=== PATIENT | female | born 1960 | race Caucasian/White ===

== ENCOUNTER 2017-10-23 07:29 | Outpatient (CLI) | payer OTHER ==
[2017-10-23 11:10] LABS: BASOPHILS % (AUTO) 0.6 %; EOSINOPHILS # (AUTO) 0.1 10^3/uL (0.0-0.7); EOSINOPHILS % (AUTO) 1.5 %; HGB - HEMOGLOBIN 13.2 g/dL (12.0-16.0); LYMPHOCYTES # (AUTO) 1.5 10^3/uL (1.5-3.5); LYMPHOCYTES % (AUTO) 20.5 %; MEAN CORPUSCULAR HEMOGLOBIN 27.6 pg (27.0-31.0); MEAN CORPUSCULAR HGB CONC 32.7 g/dL (32.0-36.0); MEAN CORPUSCULAR VOLUME 84.4 fL (81.0-99.0); MEAN PLATELET VOLUME 8.6 fL (7.9-10.8); MONOCYTES # (AUTO) 0.4 10^3/uL (0.0-1.0); MONOCYTES % (AUTO) 5.3 %; NEUTROPHILS # (AUTO) 5.3 10^3/uL (1.5-6.6); NEUTROPHILS % (AUTO) 72.1 %; PLT - PLATELET COUNT 143 10^3/uL (130-450); RED BLOOD COUNT 4.77 10^6/uL (4.20-5.40); RED CELL DISTRIBUTION WIDTH 14.8 % (12.0-15.0); WHITE BLOOD COUNT 7.4 x10^3/uL (4.8-10.8)
[2017-10-23 11:23] LABS: ALBUMIN 3.7 g/dL (3.2-5.5); ALBUMIN/GLOBULIN RATIO 1.1 (1.0-2.2); ALKALINE PHOSPHATASE 71 IU/L (42-121); ALT ALANINE AMINOTRANSFERASE 20 IU/L (10-60); AST ASPARTATE AMINOTRANSFERASE 18 IU/L (10-42); BILIRUBIN,TOTAL 0.6 mg/dL (0.2-1.0); BUN - BLOOD UREA NITROGEN 12 mg/dL (6-20); CALCIUM 8.5 mg/dL (8.5-10.3); CARBON DIOXIDE - CO2 30 mmol/L (21-32); CHLORIDE 101 mmol/L (101-111); CHOL/HDL RATIO 3.2 (<4.4); CHOLESTEROL 171 mg/dL; CREATININE 0.4 mg/dL (0.4-1.0); GFR - MDRD 163 (>89); GLUCOSE 104 mg/dL (70-100); HDL CHOLESTEROL 53 mg/dL; LDL CHOLESTEROL,CALCULATED 96 mg/dL; LDL/HDL RATIO 1.8 (<4.4); SODIUM 136 mmol/L (135-145); TOTAL PROTEIN 7.2 g/dL (6.7-8.2); VLDL CHOLESTEROL 22 mg/dL
[2017-10-23 11:31] LABS: HB2 TOTAL 14.1 g/dL; HEMOGLOBIN A1C 0.66 g/dL; HEMOGLOBIN A1C % 6.4 % (4.6-6.2)
[2017-10-23 11:32] LABS: THYROID STIMULATING HORMONE 2.91 uIU/mL (0.34-5.60)
[2017-10-23 11:38] LABS: FERRITIN 45.5 ng/mL (11.0-306.8)
== END 2017-10-23 07:30 | disposition home or self-care (01) ==
LOC: LAB.F 07:29
PROVIDERS: ATTEND Nurse Practitioner Family
DX: Z00.00 Encounter for general adult medical examination without abnormal findings (principal); E55.9 Vitamin D deficiency, unspecified; E78.5 Hyperlipidemia, unspecified; E11.9 Type 2 diabetes mellitus without complications
CPT/HCPCS: 36415; 80053; 80061; 81599; 82306; 82728; 83036; 83525; 83721; 84443; 85025

== ENCOUNTER 2017-12-01 13:26 | Outpatient (CLI) | payer OTHER | END 2017-12-01 13:27 | disposition home or self-care (01) | LOC: SC 13:26 | PROVIDERS: ATTEND Internal Medicine Pulmonary Disease | DX: G47.10 Hypersomnia, unspecified (principal); R06.83 Snoring; E66.9 Obesity, unspecified | CPT/HCPCS: 99203; 99212 ==

== ENCOUNTER 2017-12-22 17:54 | Emergency (ER) | payer OTHER ==
[2017-12-22 18:16] VITALS: BP 195/101
--- NOTE | 2017-12-22 20:00 | ED Physician Documentation ---
PD HPI LOWER EXT INJURY - Stated complaint Stated Complaint: L LEG PX - Chief complaint Chief Complaint: Ext Problem - History obtained from History obtained from: Patient - History of Present Illness PD HPI LOW EXT INJURY LOCATION: Left, Lower leg (she tripped and fell and struck just below knee (lateral anterior) and the bruising there was going down. Now with some swelling and slight tenderness lower part of lower leg and around the ankle. Not hurting in calf area. Talked with PMD office and referred to ED as could not give appt there for few days.) Type of injury: Fall Where injury occurred: Home Timing - details: Abrupt onset (a week ago in upper jin), Gradual onset (of lower leg swelling the past couple days) Worsened by: Moving. No: Palpating Associated symptoms: Swelling. 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 - Past Surgical History Past Surgical History: Yes /CDL INSTRUCTOR: Mastectomy - Present Medications Home Medications: Ambulatory Orders Medication Instructions Recorded Confirmed Natropathic Meds 09/30/15 - Allergies Allergies/Adverse Reactions: Allergies Allergy/AdvReac Type Severity Reaction Status Date / Time No Known Drug Allergies Allergy Verified 09/30/15 18:24 - Social History Does the pt smoke?: No Smoking Status: Never smoker PD ED PE NORMAL - Vitals Vital signs reviewed: Yes - General General: Alert and oriented X 3, No acute distress, Well developed/nourished - Back Back: No spinal TTP - Derm Derm: Normal color, Warm and dry, No rash - Extremities Extremities: Other (right anterior lower leg with bruising and swelling. No effusion. Mild swelling without tenderness anterior lower part of lower leg and around the upper ankle. No discoloration. No red rash nor warmth. Calf area posteriorly without tenderness. GOod color, DP pulse, and cap refill in foot. ) Results - Vitals Vitals: Oxygen O2 Source Room air PD MEDICAL DECISION MAKING - ED course Complexity details: considered differential (contusion below knee anteriorly and has swelling without tenderness below it. No tenderness in calf. I have low suspicion for DVT. discussed with her the possibility of DVT and that it did not seem like it to me, and the poor accuracy of it clinically. Offered duplex U /S. Shared decision to not do imaging unless worsening symptoms. ), d/w patient Departure - Departure Disposition: 01 Home, Self Care Clinical Impression: Contusion of lower leg, left Qualifiers: Encounter type: initial encounter Qualified Code(s): S80.12XA - Contusion of left lower leg, initial encounter Condition: Stable Record reviewed to determine appropriate education?: Yes Instructions: ED Contusion Lower Ext Follow-Up: Chito Durand ARNP [Primary Care Provider] - Comments: This looks like a reasonable consequence of the bruising in the area below the knee and subsequent gravity drainage of the hematoma down to the anterior jin and foot. You may actually get bruising down by the ankle and foot as the blood comes out that way. I think this is low clinical suspicion for DVT right now. Return if increasing pain swelling or tenderness in the calf back part or up into the thigh. Otherwise activity is desired and elevate your leg often for the swelling. Discharge Date/Time: 12/22/17 20:41
== END 2017-12-22 20:41 | disposition home or self-care (01) ==
LOC: ED 17:54
DX: S80.12XA Contusion of left lower leg, initial encounter (principal); W01.198A Fall on same level from slipping, tripping and stumbling with subsequent striking against other object, initial encounter; J45.909 Unspecified asthma, uncomplicated; Z85.3 Personal history of malignant neoplasm of breast
CPT/HCPCS: 99282; 99283

== ENCOUNTER 2018-01-12 10:58 | Outpatient (CLI) | payer OTHER ==
[2018-01-12 17:55] LABS: BASOPHILS # (AUTO) 0.1 10^3/uL (0.0-0.1); BASOPHILS % (AUTO) 0.8 %; EOSINOPHILS # (AUTO) 0.1 10^3/uL (0.0-0.7); EOSINOPHILS % (AUTO) 1.1 %; HGB - HEMOGLOBIN 13.5 g/dL (12.0-16.0); LYMPHOCYTES # (AUTO) 1.7 10^3/uL (1.5-3.5); LYMPHOCYTES % (AUTO) 18.8 %; MEAN CORPUSCULAR HEMOGLOBIN 27.2 pg (27.0-31.0); MEAN CORPUSCULAR HGB CONC 31.4 g/dL (32.0-36.0); MEAN CORPUSCULAR VOLUME 86.4 fL (81.0-99.0); MEAN PLATELET VOLUME 8.3 fL (7.9-10.8); MONOCYTES # (AUTO) 0.5 10^3/uL (0.0-1.0); MONOCYTES % (AUTO) 5.2 %; NEUTROPHILS # (AUTO) 6.7 10^3/uL (1.5-6.6); NEUTROPHILS % (AUTO) 74.1 %; PLT - PLATELET COUNT 193 10^3/uL (130-450); RED BLOOD COUNT 4.97 10^6/uL (4.20-5.40); RED CELL DISTRIBUTION WIDTH 14.5 % (12.0-15.0)
[2018-01-12 18:21] LABS: ALBUMIN 3.5 g/dL (3.2-5.5); ALBUMIN/GLOBULIN RATIO 0.8 (1.0-2.2); BILIRUBIN,TOTAL 0.8 mg/dL (0.2-1.0); CREATININE 0.6 mg/dL (0.4-1.0); TOTAL PROTEIN 7.8 g/dL (6.7-8.2)
[2018-01-12 18:53] LABS: HB2 TOTAL 14.6 g/dL; HEMOGLOBIN A1C 0.61 g/dL
== END 2018-01-12 10:59 | disposition home or self-care (01) ==
LOC: LAB.F 10:58
PROVIDERS: ATTEND Obstetrics & Gynecology
DX: E66.01 Morbid (severe) obesity due to excess calories (principal); Z68.44 Body mass index [BMI] 60.0-69.9, adult; N85.02 Endometrial intraepithelial neoplasia [EIN]
CPT/HCPCS: 36415; 80053; 83036; 85025

== ENCOUNTER 2018-01-12 11:55 | Outpatient (CLI) | payer OTHER ==
--- NOTE | 2018-01-13 15:19 | XRAY Report ---
Procedure Date: 01/12/2018 Accession Number: [id number] / [id number] Procedure: XR - Chest 2 View X-Ray CPT Code: 64289 FULL RESULT: EXAM: CHEST RADIOGRAPHY EXAM DATE: 01/12/2018 12:29 PM. CLINICAL HISTORY: PRE OP. COMPARISON: 09/30/2015. TECHNIQUE: 2 views. FINDINGS: Lungs/Pleura: No focal opacities evident. No pleural effusion. No pneumothorax. Normal volumes. Mediastinum: Heart and mediastinal contours are normal. Other: None. IMPRESSION: No acute cardiopulmonary abnormality. RADIA
== END 2018-01-12 11:56 | disposition home or self-care (01) ==
LOC: DI 11:55
PROVIDERS: ATTEND Nurse Practitioner Family
DX: Z01.818 Encounter for other preprocedural examination (principal); E66.01 Morbid (severe) obesity due to excess calories; Z68.44 Body mass index [BMI] 60.0-69.9, adult; N85.02 Endometrial intraepithelial neoplasia [EIN]
CPT/HCPCS: 36415; 71046; 80053; 83036; 85025; 93005

== ENCOUNTER 2018-01-12 11:58 | Outpatient (CLI) | payer OTHER | END 2018-01-12 11:59 | disposition home or self-care (01) | LOC: RT 11:58 | PROVIDERS: ATTEND Nurse Practitioner Family | DX: Z01.818 Encounter for other preprocedural examination (principal) | CPT/HCPCS: 93005 ==

== ENCOUNTER 2018-01-22 20:30 | Outpatient (CLI) | payer OTHER | END 2018-01-22 20:31 | disposition home or self-care (01) | LOC: SC 20:30 | PROVIDERS: ATTEND Internal Medicine Pulmonary Disease | DX: G47.33 Obstructive sleep apnea (adult) (pediatric) (principal); G47.61 Periodic limb movement disorder | CPT/HCPCS: 95810 ==

== ENCOUNTER 2018-01-26 13:40 | Outpatient (CLI) | payer OTHER | END 2018-01-26 13:41 | disposition home or self-care (01) | LOC: SC 13:40 | PROVIDERS: ATTEND Nurse Practitioner Family | DX: G47.33 Obstructive sleep apnea (adult) (pediatric) (principal); G47.61 Periodic limb movement disorder | CPT/HCPCS: 99212; 99214 ==

== ENCOUNTER 2018-02-04 13:48 | Outpatient (CLI) | payer OTHER | END 2018-02-04 13:49 | disposition home or self-care (01) | LOC: DI 13:48 | PROVIDERS: ATTEND Internal Medicine Cardiovascular Disease | DX: Z01.810 Encounter for preprocedural cardiovascular examination (principal); I10 Essential (primary) hypertension; I51.7 Cardiomegaly | CPT/HCPCS: 93306 ==

== ENCOUNTER 2018-03-10 10:00 | Outpatient (CLI) | payer OTHER | END 2018-03-10 10:01 | disposition home or self-care (01) | LOC: SC 10:00 | PROVIDERS: ATTEND Nurse Practitioner Family | DX: G47.33 Obstructive sleep apnea (adult) (pediatric) (principal) | CPT/HCPCS: 99212; 99214 ==

== ENCOUNTER 2018-05-27 10:20 | Outpatient (CLI) | payer OTHER | END 2018-05-27 10:21 | disposition home or self-care (01) | LOC: SC 10:20 | PROVIDERS: ATTEND Nurse Practitioner Family | DX: Z53.9 Procedure and treatment not carried out, unspecified reason (principal) ==

== ENCOUNTER 2018-06-24 13:26 | Outpatient (CLI) | payer OTHER ==
[2018-06-24 18:11] LABS: ALBUMIN 3.7 g/dL (3.2-5.5); ALBUMIN/GLOBULIN RATIO 1.1 (1.0-2.2); BILIRUBIN,TOTAL 0.4 mg/dL (0.2-1.0); CALCIUM 8.6 mg/dL (8.5-10.3); CREATININE 0.6 mg/dL (0.4-1.0); TOTAL PROTEIN 7.1 g/dL (6.7-8.2)
== END 2018-06-24 13:27 | disposition home or self-care (01) ==
LOC: LAB.F 13:26
PROVIDERS: ATTEND Nurse Practitioner Family
DX: Z79.899 Other long term (current) drug therapy (principal); E55.9 Vitamin D deficiency, unspecified
CPT/HCPCS: 36415; 80053; 82306

== ENCOUNTER 2018-08-03 14:20 | Outpatient (CLI) | payer OTHER ==
[2018-08-03 19:01] LABS: ALBUMIN 3.6 g/dL (3.2-5.5); ALBUMIN/GLOBULIN RATIO 0.9 (1.0-2.2); BILIRUBIN,TOTAL 0.4 mg/dL (0.2-1.0); CALCIUM 8.8 mg/dL (8.5-10.3); CREATININE 0.5 mg/dL (0.4-1.0); TOTAL PROTEIN 7.7 g/dL (6.7-8.2)
== END 2018-08-03 14:21 | disposition home or self-care (01) ==
LOC: LAB.F 14:20
PROVIDERS: ATTEND Nurse Practitioner Family
DX: E55.9 Vitamin D deficiency, unspecified (principal); Z79.899 Other long term (current) drug therapy
CPT/HCPCS: 36415; 80053; 82306

== ENCOUNTER 2018-09-18 14:18 | Outpatient (CLI) | payer OTHER | END 2018-09-18 14:19 | disposition home or self-care (01) | LOC: LAB.F 14:18 | PROVIDERS: ATTEND Nurse Practitioner Family | DX: Z79.899 Other long term (current) drug therapy (principal) | CPT/HCPCS: 36415; 80053 ==

== ENCOUNTER 2018-09-24 15:06 | Outpatient (CLI) | payer OTHER ==
[2018-09-24 17:40] LABS: ALBUMIN 3.6 g/dL (3.2-5.5); ALBUMIN/GLOBULIN RATIO 0.9 (1.0-2.2); BILIRUBIN,TOTAL 0.7 mg/dL (0.2-1.0); CALCIUM 9.5 mg/dL (8.5-10.3); CREATININE 0.6 mg/dL (0.4-1.0); TOTAL PROTEIN 7.7 g/dL (6.7-8.2)
== END 2018-09-24 15:07 | disposition home or self-care (01) ==
LOC: LAB.F 15:06
PROVIDERS: ATTEND Nurse Practitioner Family
DX: Z79.899 Other long term (current) drug therapy (principal)
CPT/HCPCS: 36415; 80053

== ENCOUNTER 2018-10-28 15:16 | Emergency (ER) | payer OTHER ==
[2018-10-28 15:21] VITALS: BP 174/79
[2018-10-28] MEDS ORDERED: cefTRIAXone 1 GM VIAL IM STA (15:41)
[2018-10-28] MEDS ORDERED: LIDOCAINE 1% 2 ML VIAL MC ONE (15:41)
--- NOTE | 2018-10-28 15:53 | ED Physician Documentation ---
History of Present Illness - Stated complaint Stated Complaint: LT LEG PX - Chief complaint Chief Complaint: Ext Problem - History obtained from History obtained from: Patient - History of Present Illness Timing: Last night - Additonal information Additional information: 66-year-old female with a prior history of cellulitis has developed redness swelling and tenderness to her anterior calf on the left side that she noticed this morning. She did notice some shaking chills last night which she thought was related to eating some muscles last night. She is afebrile this morning has some mild pain associated with the redness and has come to the emergency department for evaluation. Review of Systems Constitutional: reports: Chills. denies: Fever Eyes: denies: Decreased vision Ears: denies: Ear pain Nose: denies: Congestion Throat: denies: Sore throat Cardiac: denies: Chest pain / pressure, Palpitations Respiratory: denies: Dyspnea, Cough GI: reports: Nausea. denies: Abdominal Pain, Vomiting, Constipation, Diarrhea : denies: Dysuria, Frequency Skin: denies: Rash Musculoskeletal: reports: Extremity pain, Extremity swelling. 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: Mastectomy - Present Medications Home Medications: Ambulatory Orders Medication Instructions Recorded Confirmed Natropathic Meds 09/30/15 Amox/Clav 875/125 [Augmentin] 1 each PO Q12H #14 tablet 10/28/18 Telmisartan 80 mg PO 10/28/18 hydroCHLOROthiazide 25 mg PO 10/28/18 10/28/18 [Hydrochlorothiazide] - Allergies Allergies/Adverse Reactions: Allergies Allergy/AdvReac Type Severity Reaction Status Date / Time No Known Drug Allergies Allergy Verified 10/28/18 15:21 - Social History Does the pt smoke?: No Smoking Status: Never smoker PD ED PE NORMAL - Vitals Vital signs reviewed: Yes (hypertensive ) - General General: Alert and oriented X 3, No acute distress, Well developed/nourished - HEENT HEENT: Atraumatic, PERRL, EOMI - Respiratory Respiratory: No respiratory distress - Derm Derm: Normal color, Warm and dry, No rash - Extremities Extremities: No deformity, No edema, Other (There is postinflammatory hyperpigmentation to the calves bilaterally and to the left calf there is erythema that extends in a triangular shape up to the knee from the ankle. There is mild swelling associated with this and some tenderness. 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, No motor deficit, No sensory deficit, Normal speech Eye Opening: Spontaneous Motor: Obeys Commands Verbal: Oriented GCS Score: 15 - Psych Psych: Normal mood, Normal affect Results - Vitals Vitals: Vital Signs - 24 hr 10/28/18 15:19 Temperature 37.4 C Heart Rate 96 Respiratory 22 Rate Blood Pressure 174/79 H O2 Saturation 96 Oxygen O2 Source Room air PD MEDICAL DECISION MAKING - ED course Complexity details: considered differential, d/w patient ED course: 58-year-old female with cellulitis to left anterior calf has the outlines of the cellulitis marked with a surgical marker and she is instructed to return to the emergency department should this infection go past these borders. She is administered Rocephin 1 [address] will [address] her on some Augmentin.I have discussed with the patient reasons to return to the hospital including fever and shaking chills as well as extension of the erythema past the borders. Departure - Departure Disposition: 01 Home, Self Care Clinical Impression: Cellulitis Qualifiers: Site of cellulitis: extremity Site of cellulitis of extremity: lower extremity Laterality: left Qualified Code(s): L03.116 - Cellulitis of left lower limb Condition: Stable Instructions: ED Infec Skin Cellulitis Follow-Up: Chito Durand ARNP [Primary Care Provider] - Prescriptions: Amox/Clav 875/125 [Augmentin] 1 each PO Q12H #14 tablet
== END 2018-10-28 16:01 | disposition home or self-care (01) ==
LOC: ED 15:16
DX: L03.116 Cellulitis of left lower limb (principal); Z85.3 Personal history of malignant neoplasm of breast; Z90.10 Acquired absence of unspecified breast and nipple
CPT/HCPCS: 96372; 99283

== ENCOUNTER 2018-10-30 10:04 | Emergency (ER) | payer OTHER ==
--- NOTE | 2018-10-30 11:10 | ED Physician Documentation ---
PD HPI SKIN - Stated complaint Stated Complaint: LOW LEFT LEG PAIN - Chief complaint Chief Complaint: Wound - History obtained from History obtained from: Patient - History of Present Illness Timing - onset: How many days ago (few) Timing - duration: Days (few) Timing - details: Gradual onset, Waxing and waning (She had redness and swelling left lower leg and seen in ER with IM med Rocephin and then PO Meds. She says she feels better but has some decrease of redness upper aspect of it but spread to the back on lower part of lower leg. No drainage.) Location: LLE (anterior lower lower leg) Quality / character: Burning, Discolored (red), Swelling. No: Vesicular, Draining Associated symptoms: No: Fever, Myalgias, N/V/D Contributing factors: No: Recent illness Similar symptoms before: Has not had sx before Recently seen: Emergency Dept (2 days ago) Review of Systems Constitutional: denies: Fever, Chills, Myalgias Nose: denies: Rhinorrhea / runny nose, Congestion Throat: denies: Sore throat Respiratory: denies: Cough GI: denies: Nausea, Vomiting Skin: reports: Rash PD PAST MEDICAL HISTORY - Past Medical History Cardiovascular: Hypertension Respiratory: Asthma CORRECTIONAL GUARD: Breast cancer - Past Surgical History Past Surgical History: Yes /CORRECTIONAL GUARD: Hysterectomy, Mastectomy - Present Medications Home Medications: Ambulatory Orders Medication Instructions Recorded Confirmed Amox/Clav 875/125 [Augmentin] 1 each PO Q12H #14 tablet 10/28/18 Telmisartan 80 mg PO 10/28/18 hydroCHLOROthiazide 25 mg PO 10/28/18 10/28/18 [Hydrochlorothiazide] Saccharomyces Boulardii [Florastor] 250 mg PO BID #20 capsule 10/30/18 Sulfamethox/Trimeth 800/160 1 each PO BID #14 tablet 10/30/18 [Bactrim Ds 800/160] - Allergies Allergies/Adverse Reactions: Allergies Allergy/AdvReac Type Severity Reaction Status Date / Time oxycodone Allergy Emesis Verified 10/30/18 10:18 - Social History Does the pt smoke?: No Smoking Status: Never smoker Does the pt drink ETOH?: Yes Does the pt have substance abuse?: Yes Substance Use and Type: Marijuana - Immunizations Immunizations are current?: No Immunizations: TDAP >10years/unknown PD ED PE NORMAL - Vitals Vital signs reviewed: Yes - General General: Alert and oriented X 3, No acute distress, Well developed/nourished - Back Back: No CVA TTP - Derm Derm: Normal color, Warm and dry, Other (left lower leg anteriorly with redness and swelling, some tenderness. It is receded from ink drawn margin on superior aspect of the area. It is beyond the drawn line medial/lower aspect. ) - Extremities Extremities: No calf tenderness / cord - Neuro Neuro: Alert and oriented X 3, No motor deficit, No sensory deficit, Normal speech Results - Vitals Vitals: Vital Signs - 24 hr 10/30/18 10/30/18 10:12 13:01 Temperature 36.7 C 98.6 C H Heart Rate 86 80 Respiratory 18 16 Rate Blood Pressure 137/112 H 144/83 H O2 Saturation 99 Oxygen O2 Source Room air PD MEDICAL DECISION MAKING - ED course Complexity details: considered differential, d/w patient Departure - Departure Disposition: Home, Self Care Clinical Impression: Cellulitis of left lower leg Condition: Stable Record reviewed to determine appropriate education?: Yes Instructions: ED Infec Skin Cellulitis Follow-Up: Chito Durand ARNP [Primary Care Provider] - Prescriptions: Saccharomyces Boulardii [Florastor] 250 mg PO BID #20 capsule Sulfamethox/Trimeth 800/160 [Bactrim Ds 800/160] 1 each PO BID #14 tablet Comments: Elevate and rest the leg often but it is okay to be up and around periodically. You can use an Ra wrap if needed for swelling. Provide some warmth or heat to the area periodically to increase blood flow and help fight off the infection. Continue your current Augmentin and add Bactrim antibiotic to increase coverage for Staphylococcus as well. Add a probiotic to mitigate the intestinal side effects. Recheck if still not improving well over the next 2-3 days and return sooner if notably worsening in size or you have general symptoms of fever chills nausea etc. Discharge Date/Time: 10/30/18 13:12
[2018-10-30] MEDS ORDERED: LIDOCAINE 1% 2 ML VIAL MC ONE (11:58)
[2018-10-30] MEDS ORDERED: SULFAMETH/TRIMETH DS 800/160 MG TABLET PO STA (11:58)
[2018-10-30] MEDS ORDERED: cefTRIAXone 1 GM VIAL IM STA (11:58)
[2018-10-30 13:03] VITALS: BP 144/83
== END 2018-10-30 13:12 | disposition home or self-care (01) ==
LOC: ED 10:04
DX: L03.116 Cellulitis of left lower limb (principal); I10 Essential (primary) hypertension
CPT/HCPCS: 96372; 99283; A9270

== ENCOUNTER 2019-01-25 09:07 | Outpatient (CLI) | payer OTHER ==
--- NOTE | 2019-01-26 10:19 | XRAY Report ---
Reason: INCREASING CHRONIC PAIN CONCERN FOR DEGENERATIVE Procedure Date: 01/25/2019 Accession Number: [id number] / [id number] Procedure: XRS - Ankle 3 View LT CPT Code: FULL RESULT: EXAM: LEFT ANKLE RADIOGRAPHY EXAM DATE: 01/25/2019 09:25 AM. CLINICAL HISTORY: INCREASING CHRONIC PAIN CONCERN FOR DEGENERATIVE. COMPARISON: None. TECHNIQUE: 3 views. FINDINGS: Bones: Plantar heel spur. No fractures or bone lesions. Joints: Navicular cuneiform osteophyte. Cuneiform metatarsal osteophyte. No effusion. No subluxations. The ankle mortise is normally aligned. Soft Tissues: Normal. No soft tissue swelling. IMPRESSION: 1. Heel spur. 2. Degenerative changes midfoot RADIA
--- NOTE | 2019-01-26 10:22 | XRAY Report ---
Reason: INCREASING CHRONIC PAIN CONCERN FOR DEGENERATIVE Procedure Date: 01/25/2019 Accession Number: [id number] / [id number] Procedure: XRS - Foot 3 View LT CPT Code: FULL RESULT: EXAM: LEFT FOOT RADIOGRAPHY EXAM DATE: 01/25/2019 09:25 AM. CLINICAL HISTORY: INCREASING CHRONIC PAIN CONCERN FOR DEGENERATIVE. COMPARISON: ANKLE 3 VIEW LT 01/25/2019 9:27 AM. TECHNIQUE: 3 views. FINDINGS: Bones: Mild metatarsus adductus, hallux valgus. Bony overgrowth growth first metatarsal head. No fractures or bone lesions. Joints: Navicular cuneiform osteophyte. Cuneiform metatarsal osteophyte. 1 of the digits on the lateral view appears to be in hammertoe configuration Soft Tissues: Soft tissue swelling. IMPRESSION: 1. DJD. 2. Bunion formation RADIA
== END 2019-01-25 09:08 | disposition home or self-care (01) ==
LOC: DI.S 09:07
PROVIDERS: ATTEND Nurse Practitioner Family
DX: M77.32 Calcaneal spur, left foot (principal); M19.072 Primary osteoarthritis, left ankle and foot; M21.612 Bunion of left foot

== ENCOUNTER 2019-09-20 08:39 | Outpatient (CLI) | payer OTHER ==
[2019-09-20 17:56] LABS: BASOPHILS % (AUTO) 0.6 %; EOSINOPHILS # (AUTO) 0.1 10^3/uL (0.0-0.7); EOSINOPHILS % (AUTO) 1.1 %; HGB - HEMOGLOBIN 13.4 g/dL (12.0-16.0); LYMPHOCYTES # (AUTO) 1.5 10^3/uL (1.5-3.5); LYMPHOCYTES % (AUTO) 20.9 %; MEAN CORPUSCULAR HEMOGLOBIN 26.4 pg (27.0-31.0); MEAN CORPUSCULAR HGB CONC 29.7 g/dL (32.0-36.0); MEAN CORPUSCULAR VOLUME 88.8 fL (81.0-99.0); MEAN PLATELET VOLUME 10.1 fL (7.9-10.8); MONOCYTES # (AUTO) 0.4 10^3/uL (0.0-1.0); MONOCYTES % (AUTO) 6.2 %; NEUTROPHILS # (AUTO) 5.1 10^3/uL (1.5-6.6); NEUTROPHILS % (AUTO) 71.1 %; PLT - PLATELET COUNT 196 10^3/uL (130-450); RED BLOOD COUNT 5.08 10^6/uL (4.20-5.40); RED CELL DISTRIBUTION WIDTH 13.6 % (12.0-15.0); WHITE BLOOD COUNT 7.1 x10^3/uL (4.8-10.8)
[2019-09-20 18:17] LABS: HB2 TOTAL 13.9 g/dL; HEMOGLOBIN A1C 0.75 g/dL; HEMOGLOBIN A1C % 7.1 % (4.6-6.2)
[2019-09-20 18:32] LABS: ALBUMIN 3.5 g/dL (3.2-5.5); ALBUMIN/GLOBULIN RATIO 0.9 (1.0-2.2); ALKALINE PHOSPHATASE 63 IU/L (42-121); ALT ALANINE AMINOTRANSFERASE 25 IU/L (10-60); AST ASPARTATE AMINOTRANSFERASE 22 IU/L (10-42); BILIRUBIN,TOTAL 0.5 mg/dL (0.2-1.0); BUN - BLOOD UREA NITROGEN 17 mg/dL (6-20); CALCIUM 8.7 mg/dL (8.5-10.3); CARBON DIOXIDE - CO2 28 mmol/L (21-32); CHLORIDE 102 mmol/L (101-111); CHOL/HDL RATIO 3.7 (<4.4); CHOLESTEROL 187 mg/dL; CREATININE 0.6 mg/dL (0.4-1.0); CRP - C-REACTIVE PROTEIN 1.9 mg/dL (0-1.0); GLUCOSE 121 mg/dL (70-100); HDL CHOLESTEROL 50 mg/dL; LDL CHOLESTEROL,CALCULATED 119 mg/dL; LDL/HDL RATIO 2.4 (<4.4); SODIUM 137 mmol/L (135-145); T4 (THYROXINE) 8.81 ug/dL (6.09-12.23); TOTAL PROTEIN 7.4 g/dL (6.7-8.2); VLDL CHOLESTEROL 18 mg/dL
[2019-09-20 18:34] LABS: THYROID STIMULATING HORMONE 2.67 uIU/mL (0.34-5.60)
[2019-09-20 18:36] LABS: FREE T4 (FREE THYROXINE) 1.07 ng/dL (0.58-1.64)
[2019-09-20 18:41] LABS: FERRITIN 55.5 ng/mL (11.0-306.8)
== END 2019-09-20 08:40 | disposition home or self-care (01) ==
LOC: LAB.S 08:39
PROVIDERS: ATTEND Nurse Practitioner Family
DX: Z01.00 Encounter for examination of eyes and vision without abnormal findings (principal); R53.83 Other fatigue; E55.9 Vitamin D deficiency, unspecified; E78.5 Hyperlipidemia, unspecified; R73.9 Hyperglycemia, unspecified; M66.0 Rupture of popliteal cyst
CPT/HCPCS: 36415; 80053; 80061; 81599; 82306; 82728; 83036; 83525; 83721; 84436; 84439; 84443; 84481; 85025; 85651; 86140

== ENCOUNTER 2020-01-19 10:01 | Outpatient (CLI) | payer OTHER ==
[2020-01-19 15:46] LABS: HB2 TOTAL 13.5 g/dL; HEMOGLOBIN A1C 0.74 g/dL; HEMOGLOBIN A1C % 7.2 % (4.6-6.2)
[2020-01-19 16:09] LABS: T3 UPTAKE 38.7 % (32.0-48.4)
[2020-01-19 16:10] LABS: T4 (THYROXINE) 10.27 ug/dL (6.09-12.23)
[2020-01-19 16:13] LABS: FREE T3 3.24 pg/mL (2.5-3.9); THYROID STIMULATING HORMONE 2.51 uIU/mL (0.34-5.60)
[2020-01-19 16:14] LABS: FREE T4 (FREE THYROXINE) 0.97 ng/dL (0.58-1.64)
== END 2020-01-19 10:02 | disposition home or self-care (01) ==
LOC: LAB.S 10:01
PROVIDERS: ATTEND Nurse Practitioner Family
DX: R53.83 Other fatigue (principal); E55.9 Vitamin D deficiency, unspecified; R73.9 Hyperglycemia, unspecified
CPT/HCPCS: 36415; 82306; 83036; 84436; 84439; 84443; 84479; 84481; 84482; 86376; 86800

== ENCOUNTER 2020-04-20 12:02 | Outpatient (CLI) | payer OTHER ==
[2020-04-20 15:35] LABS: BASOPHILS % (AUTO) 0.5 %; EOSINOPHILS # (AUTO) 0.1 10^3/uL (0.0-0.7); EOSINOPHILS % (AUTO) 1.2 %; HGB - HEMOGLOBIN 13.6 g/dL (12.0-16.0); LYMPHOCYTES # (AUTO) 2.2 10^3/uL (1.5-3.5); LYMPHOCYTES % (AUTO) 24.3 %; MEAN CORPUSCULAR HGB CONC 31.5 g/dL (32.0-36.0); MEAN CORPUSCULAR VOLUME 88.9 fL (81.0-99.0); MEAN PLATELET VOLUME 10.1 fL (7.9-10.8); MONOCYTES # (AUTO) 0.5 10^3/uL (0.0-1.0); MONOCYTES % (AUTO) 5.1 %; NEUTROPHILS % (AUTO) 68.3 %; PLT - PLATELET COUNT 230 10^3/uL (130-450); RED BLOOD COUNT 4.86 10^6/uL (4.20-5.40); RED CELL DISTRIBUTION WIDTH 13.8 % (12.0-15.0); WHITE BLOOD COUNT 8.8 x10^3/uL (4.8-10.8)
[2020-04-20 16:24] LABS: FOLATE 15.18 ng/mL (5.90 - >24.8)
[2020-04-20 19:34] LABS: HEMOGLOBIN A1c% 6.9 % (4.27-6.07)
== END 2020-04-20 12:03 | disposition home or self-care (01) ==
LOC: LAB.S 12:02
PROVIDERS: ATTEND Nurse Practitioner Family
DX: E11.9 Type 2 diabetes mellitus without complications (principal); E72.12 Methylenetetrahydrofolate reductase deficiency
CPT/HCPCS: 36415; 82607; 82746; 83036; 83090; 85025

== ENCOUNTER 2020-06-28 10:29 | Outpatient (CLI) | payer OTHER ==
--- NOTE | 2020-06-28 10:56 | XRAY Report ---
PROCEDURE: Hip w/Pelvis 2-3V RT INDICATIONS: HIP PAIN TECHNIQUE: AP pelvis with lateral view(s) of the bilateral hip(s). COMPARISON: None. FINDINGS: Bones: AP views of the pelvis and 2 views of the right hip were performed. No fracture or dislocation is identified however fine bone detail is obscured by overlying soft tissue due to body habitus.. Th ere are moderate degenerative changes of the right hip and mild degenerative changes of the left hip. The visualized lumbar spine has mild degenerative changes. Soft tissues: The visualized bowel gas pattern is normal. No suspicious soft tissue calcifications. IMPRESSION: No hip fracture is identified. If the patient is nonweightbearing recommend CT or MR. Reviewed by: Mustapha Oneal on 06/28/2020 10:55 AM [facility] Approved by: Mustapha Oneal on 06/28/2020 10:55 AM [facility] Station ID: [id number]
== END 2020-06-28 10:30 | disposition home or self-care (01) ==
LOC: DI.S 10:29
PROVIDERS: ATTEND Nurse Practitioner Family
DX: M25.551 Pain in right hip (principal)

== ENCOUNTER 2020-11-15 15:33 | Outpatient (CLI) | payer OTHER ==
[2020-11-15 21:12] LABS: ESTIMATED AVERAGE GLUCOSE 151 mg/dL (70-100); HEMOGLOBIN A1c% 6.9 % (4.27-6.07)
== END 2020-11-15 15:34 | disposition home or self-care (01) ==
LOC: LAB.S 15:33
PROVIDERS: ATTEND Nurse Practitioner Family
DX: R73.9 Hyperglycemia, unspecified (principal)
CPT/HCPCS: 36415; 83036

== ENCOUNTER 2021-02-14 13:26 | Outpatient (CLI) | payer OTHER ==
--- NOTE | 2021-02-14 14:28 | XRAY Report ---
PROCEDURE: Knee 3 View BILAT INDICATIONS: PX IN RT KNEE TECHNIQUE: 3 views of the bilateral knee(s) were acquired, 6 views total. COMPARISON: None. FINDINGS: Bones: No fractures or dislocations but there is severe medial compartment degenerative knee joint o steoarthritis bilaterally, slightly greater on the right than the left. On the right there is bone-on -bone articulation in that area. Moderate patellofemoral joint osteoarthritis also appears present on the right but severe on the left.. No suspicious bony lesions. Soft tissues: No joint effusion. No suspicious soft tissue calcifications. IMPRESSION: Bilateral severe knee joint osteoarthritis as discussed above, overall slightly greater on the right than the left. Reviewed by: Clint Jacobs MD on 02/14/2021 2:26 PM PDT Approved by: Clint Jacobs MD on 02/14/2021 2:26 PM PDT Station ID: [id number]
== END 2021-02-14 13:27 | disposition home or self-care (01) ==
LOC: DI.S 13:26
PROVIDERS: ATTEND Nurse Practitioner Family
DX: M17.0 Bilateral primary osteoarthritis of knee (principal)

== ENCOUNTER 2021-07-06 08:15 | Outpatient (CLI) | payer OTHER ==
[2021-07-06 20:08] LABS: ESTIMATED AVERAGE GLUCOSE 151 mg/dL (70-100); HEMOGLOBIN A1c% 6.9 % (4.27-6.07)
== END 2021-07-06 08:16 | disposition home or self-care (01) ==
LOC: LAB.S 08:15
PROVIDERS: ATTEND Nurse Practitioner Family
DX: E11.9 Type 2 diabetes mellitus without complications (principal)
CPT/HCPCS: 36415; 83036

== ENCOUNTER 2021-08-10 09:10 | Outpatient (CLI) | payer OTHER ==
[2021-08-10 15:19] LABS: BASOPHILS # (AUTO) 0.1 10^3/uL (0.0-0.1); BASOPHILS % (AUTO) 0.6 %; EOSINOPHILS # (AUTO) 0.2 10^3/uL (0.0-0.7); EOSINOPHILS % (AUTO) 1.7 %; HCT - HEMATOCRIT 41.2 % (37.0-47.0); HGB - HEMOGLOBIN 12.7 g/dL (12.0-16.0); LYMPHOCYTES # (AUTO) 2.4 10^3/uL (1.5-3.5); LYMPHOCYTES % (AUTO) 27.1 %; MEAN CORPUSCULAR HEMOGLOBIN 27.3 pg (27.0-31.0); MEAN CORPUSCULAR HGB CONC 30.8 g/dL (32.0-36.0); MEAN CORPUSCULAR VOLUME 88.4 fL (81.0-99.0); MEAN PLATELET VOLUME 10.3 fL (7.9-10.8); MONOCYTES # (AUTO) 0.4 10^3/uL (0.0-1.0); MONOCYTES % (AUTO) 4.1 %; NEUTROPHILS # (AUTO) 5.8 10^3/uL (1.5-6.6); NEUTROPHILS % (AUTO) 66.2 %; PLT - PLATELET COUNT 224 10^3/uL (130-450); RED BLOOD COUNT 4.66 10^6/uL (4.20-5.40); RED CELL DISTRIBUTION WIDTH 13.7 % (12.0-15.0); WHITE BLOOD COUNT 8.8 x10^3/uL (4.8-10.8)
[2021-08-10 15:33] LABS: CREATININE,URINE 97.6 mg/dL; MICROALBUM/CREATININE RATIO,UR 16.4 ug/mg (<30.0); MICROALBUMIN,URINE 1.6 mg/dL (0-300.0)
[2021-08-10 15:35] LABS: ALBUMIN 3.6 g/dL (3.2-5.5); ALBUMIN/GLOBULIN RATIO 0.9 (1.0-2.2); ALKALINE PHOSPHATASE 72 IU/L (42-121); ALT ALANINE AMINOTRANSFERASE 36 IU/L (10-60); AST ASPARTATE AMINOTRANSFERASE 25 IU/L (10-42); BILIRUBIN,TOTAL 0.7 mg/dL (0.2-1.0); BUN - BLOOD UREA NITROGEN 18 mg/dL (6-20); CARBON DIOXIDE - CO2 26 mmol/L (21-32); CHLORIDE 102 mmol/L (101-111); CHOL/HDL RATIO 4.6 (<4.4); CHOLESTEROL 212 mg/dL; CREATININE 0.8 mg/dL (0.4-1.0); GFR - MDRD 73 (>89); GLUCOSE 139 mg/dL (70-100); HDL CHOLESTEROL 46 mg/dL; LDL CHOLESTEROL,CALCULATED 132 mg/dL; LDL/HDL RATIO 2.9 (<4.4); POTASSIUM 3.9 mmol/L (3.5-5.0); SODIUM 138 mmol/L (135-145); TOTAL PROTEIN 7.8 g/dL (6.7-8.2); TRIGLYCERIDES 172 mg/dL; VLDL CHOLESTEROL 34 mg/dL
== END 2021-08-10 09:11 | disposition home or self-care (01) ==
LOC: LAB.S 09:10
PROVIDERS: ATTEND Nurse Practitioner Family
DX: E11.9 Type 2 diabetes mellitus without complications (principal); I10 Essential (primary) hypertension; Z13.220 Encounter for screening for lipoid disorders
CPT/HCPCS: 36415; 80053; 80061; 82043; 82570; 83721; 84443; 85025

== ENCOUNTER 2023-04-10 13:52 | Outpatient (CLI) | payer OTHER ==
--- NOTE | 2023-04-10 14:53 | Sleep Patient Instructions ---
Sleep Center Visit Summary - Patient Visit Information Reason for Visit: Initial consultation to re-establish care - Patient Instructions Additional Instructions: You will continue with CPAP therapy with pressure set at 12-15 cmH2O. A supply prescription will be updated with your DME. We are updating your machine, please call when you get your machine to schedule your followup. We encourage you to continue to try to lose weight. Please follow up with the sleep care office one month after obtaining new device. - Clinic Information Contact: [facility] [address] [place] [address] [email or web address] T: [phone]
--- NOTE | 2023-04-10 15:02 | SLEEP CARE CONSULTATION ---
Information from patient questionnaire entered by Missy Contreras. I have reviewed and concur with the information entered by Missy Contreras. This document represents the service I personally performed and the decisions made by me, Lou Torres ARNP. History of Present Illness Service Date and Time: 04/10/2023 1352 Reason for Visit: New patient, Previously diagnosed sleep apnea, sleep apnea on CPAP therapy, Re-establish care Chief Complaint: reports: Excessive daytime sleepiness, Frequent awakenings at night, Other (F/U AFTER 5YRS) Date of Onset: 1-2 Usual bedtime: 11PM Time it takes to fall asleep: 1MIN Snores at night: No (Don't know, sleeps alone) Number of times waking at night: 2-20 Reasons for waking at night: reports: Pain, Bathroom, Other (DRY MOUTH PINS AND NEEDLES IN HANDS) Toss, Turn, or Twitch while sleeping: No Recalls having dreams: No Usually gets out of bed at: 4-7AM Feels refreshed in the morning: No Morning headache: No Sleepy or fatigued during the day: Yes Ever fallen asleep while driving: No Takes day naps: Yes Dreams during day naps: No Prior sleep studies: Yes Year and Where: 2017 [facility] Additional HPI information: SHAHNAZ INFANTE was previously diagnosed to have mild, AHI 8.6, obstructive sleep apnea-hypopnea syndrome in sleep study dated 01/22/2018 and comes in today to re-establish care for CPAP therapy. - Parasomnia Symptoms Ever been unable to move upon waking from sleep: No Walks in sleep: No Talks in sleep: No Ever acted out dreams in sleep: No Ever felt weak in the knees when startled or emotional: No Bothered by creepy, crawly, restless sensations in legs: No Problems with memory or concentration: No CPAP Compliance Data - Data Reviewed with Patient Average duration of nightly device use: 7 hours 46 minutes Compliance rate %: 94 (85/90 days used) Current pressure setting (cmH2O): 12-15 Average residual AHI: 0.6 Central apnea: 0.2 Obstructive apnea: 0 Hypopnea: 0.3 Average large leak: 4.2 L/min Compliance data discussion: She has a ResMed Airsense 10 that was was set up 01/2018. She is getting her supplies from [employer]. She has a hybrid full face mask, Epifanio Dreamwear, medium headgear and large cushion. She does have a backup mask. Subjective Patient concerns: reports: dry mouth, nose, throat. denies: aerophagia, mask discomfort, air blowing in eyes, mask leak noise, condensation in mask/hose, nasal congestion, epistaxis Observed to snore while using device: No Current pressure setting perceived as: comfortable On therapy, patient: reports: sleeping better, awakening more refreshed, being more awake and alert during the day, more rested overall. 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 Patient is Single and lives in [place]. Have you smoked in the past 12 months: No (occasional marijuana ) Cigarettes per day (20/pack): 20 Years of smokin Quit date: 1984 Smoking Pack Years: 6.0 Alcohol use: Yes Alcohol amount and frequency: .5 GLASS OF WINE 3-4 X YR Caffeine use: Yes Caffeine amount and frequency: TALL COFFEE 3-4 TIMES YRS Family History Family history of sleep disordered breathing: No Allergies and Home Medications Known drug allergies: No (oxycodone causes nausea) Drug allergies reviewed: Yes Home medication list reviewed: Yes (as listed) Allergy and home medication list: Allergies oxycodone Allergy (Verified 04/09/23 12:56) Emesis Review of Systems Weight loss over past 5 years: 45 over last year+ Cardiovascular: reports: high blood pressure Respiratory: reports: shortness of breath, wheeze Gastrointestinal: reports: difficulty swallowing, diarrhea Urinary: reports: urgency Neurological: reports: gait or balance problems. denies: headaches, head trauma Psychiatric: reports: depression Ear/Nose/Throat: reports: nasal congestion, dry mouth/throat. denies: tonsillectomy Endocrine: reports: sluggishness, excessive thirst Musculoskeletal: reports: joint pain, mobility problems Immunologic: denies: allergies to food or environment Physical Exam Vital signs obtained and entered by: MISSY Wagoner MA Blood Pressure: 142/69 (RIGHT ) Cuff size: wrist Heart Rate: 85 O2 Saturation: 98 Height: 5 ft 6 in Weight: 312 lb Body Mass Index: 50.3 BMI Classification: Morbidly Obese Neck circumference: 17 Heart: regular rate and rhythm Lungs: clear bilaterally Impression and Plan 1. Obstructive Sleep Apnea-Hypopnea Syndrome, mild, with good treatment compliance and good apnea control. On CPAP therapy, the patient has better sleep quality and is more rested overall. Patient has significant improvement of their sleep apnea and is satisfied with current CPAP therapy. She states she gets some dry mouth but she does not use her water chamber. We talked in length about how to use the humidity to help reduce her dry mouth and she voiced understanding. She last updated her CPAP in 2018. The patients CPAP is over 5 years old and of reasonable use. Thus, the CPAP will be updated. The new CPAPs also have a better humidity system which could assist control of patients dryness symptoms. A DWO prescription will be made. Compliance guidelines for new device and follow up discussed. Patient's apnea severity and rationale for treatment to reduce apnea, improve sleep quality and reduce cardiovascular and cerebrovascular events was reviewed. I also reviewed the benefit of consistent device use of CPAP for hypertension, diabetes and depression. 2. Obesity, unspecified. Currently patients BMI is 50.3. Obesity increases the risk of apnea, CPAP pressure requirements and overall health risks especially cardiovascular and diabetes. Thus patient is advised to lose weight. * Continue auto CPAP pressure at 12-15 cmH2O * Update machine * Update supplies * Notify me if snoring with mask or feeling that the pressure is too much or too little * Attempt to lose weight * Call this office if any problems using CPAP * Return for follow up one month after obtain a new device, or sooner if concerns arise Counseling Topics: Spare mask, Weight loss health impact Prescriptions: Auto CPAP (update machine), Device supplies Visit Type: In Office Time Spent with Patient (minutes): 33 Provider Statement: I spent 100% of the Face to Face Visit with the patient with greater than 50% spent counseling the patient and coordination of care.
[2023-04-10 15:11] VITALS: BP 142/69; O2SAT 98
== END 2023-04-10 13:53 | disposition home or self-care (01) ==
LOC: SC 13:52
PROVIDERS: ATTEND Nurse Practitioner Family
DX: G47.33 Obstructive sleep apnea (adult) (pediatric) (principal); E66.01 Morbid (severe) obesity due to excess calories; Z68.43 Body mass index [BMI] 50.0-59.9, adult
CPT/HCPCS: 99203; 99212